=== PATIENT | female | born 1980 | race African-American/Black ===

== ENCOUNTER 2017-11-10 20:17 | Emergency (ER) | payer OTHER ==
--- NOTE | 2017-11-10 20:23 | ED Physician Documentation ---
General Adult - HISTORIAN Historian: patient - HPI Stated Complaint: R leg pain, fall Chief Complaint: General Adult Onset: hours Timing: still present Severity: moderate Further Comments: yes (Pt is a 37 yo female with R leg pain after falling in bathtub at home. Pt states she struck her ding on the edge of the tub and has swelling on her anterior mid leg. Pt denies feeling unsafe at home.) - ROS CONST: no problems EYES/ENT: none CVS/RESP: none GI/: none MS/SKIN/LYMPH: other (R leg injury) - PAST HX Past History: other (c-sec, hysterectomy) Allergies/Adverse Reactions: Allergies Allergy/AdvReac Type Severity Reaction Status Date / Time No Known Allergies Allergy Verified 11/10/17 20:34 Home Medications: Ambulatory Orders Medication Instructions Recorded NK [NK] 11/10/17 - SOCIAL HX Smoking History: cigarettes - FAMILY HX Family History: No - REVIEWED ASSESSMENTS Nursing Assessment Reviewed: Yes Vitals Reviewed: Yes Progress - Progress Progress: Ice to hematoma Tylenol/motrin prn General Adult Physical Exam - PHYSICAL EXAM GENERAL APPEARANCE: moderate distress NECK: normal inspection, supple RESPIRATORY: no resp distress, chest non-tender, breath sounds normal CVS: reg rate & rhythm, heart sounds normal ABDOMEN: soft, no organomegaly, normal bowel sounds BACK: normal inspection, no CVA tenderness SKIN: other (hematoma, mid R leg) EXTREMITIES: tenderness (hematoma mid R leg) NEURO: oriented X3, motor nml, sensation nml Discharge Clincal Impression: contusion/hematoma R leg Referrals: Paul Preston [Primary Care Provider] - Condition: Good Disposition: 01 HOME, SELF-CARE Decision to Admit: NO Decision Time: 20:54
[2017-11-10 20:34] VITALS: BP 134/97
--- NOTE | 2017-11-10 21:46 | Diagnostic Imaging Report ---
SMOOTH CORONEL [facility] [id number] [facility] [address] [address] Report Submission Date: Nov 10, 2017 8:51:28 PM [employer] [employer]MER Patient Study Name: TREVIN ROMEO Date: Nov 10, 2017 8:32:40 PM [employer]MER Modality Type: DX Gender: F Description: LOWER EXTREMITY : 82 Institution: [facility] Physician: SMOOTH CORONEL Right tibia fibula 2 views History: Pain after injury Findings: The right tibia and fibula are intact without fracture or dislocation. Electronically signed on Nov 10, 2017 8:51:28 PM [employer] by: Kvng READ
== END 2017-11-10 21:02 | disposition home or self-care (01) ==
LOC: ED 20:17
DX: S80.11XA Contusion of right lower leg, initial encounter (principal); X58.XXXA Exposure to other specified factors, initial encounter; Y93.9 Activity, unspecified; Y92.9 Unspecified place or not applicable; Y99.9 Unspecified external cause status
CPT/HCPCS: 73590; 99282